=== PATIENT | male | born 1965 | race Caucasian/White ===

== ENCOUNTER → 2020-02-22 17:47 | Outpatient (BNVA) | payer SELFPAY | PROVIDERS: Visit Provider Nurse Practitioner Family | DX: E11.65 Type 2 diabetes mellitus with hyperglycemia (principal); I10 Essential (primary) hypertension; R39.198 Other difficulties with micturition; Z72.0 Tobacco use | CPT/HCPCS: 80053; 80061; 81003; 82043; 83036; 85025 ==

== ENCOUNTER 2020-04-07 07:08 | Outpatient (CLI) | payer SELFPAY ==
--- NOTE | 2020-04-07 07:15 | US_ITS ---
WS: [id number] ULTRASOUND ABDOMEN LIMITED CLINICAL INFORMATION: RUQ pain COMPARISON: None. FINDINGS: Liver Size: Normal. Craniocaudal length: 16.6 cm. Echogenicity: Normal. Surface nodularity: None. Mass (size and location): None. Bile ducts Intrahepatic ducts: Normal. Common bile duct diameter: 0.3 cm. Gallbladder Normal. Gallstones: None. Gallbladder sludge: None. Gallbladder wall thickening: None. Pericholecystic fluid: None. Sonographic Early sign: Absent. Pancreas Normal as visualized. Right kidney: Normal. Hydronephrosis: None. Size: 11.9 cm x 5.6 cm x 5.4 cm. Abdominal aorta and IVC Visualized portions are normal. Ascites: None. US/US abdomen limited 11323 IMPRESSION: Normal abdominal ultrasound
== END 2020-04-07 07:09 | disposition home or self-care (01) ==
LOC: US 07:19
PROVIDERS: PCP Chiropractor Orthopedic; Visit Provider Nurse Practitioner Family
DX: R10.11 Right upper quadrant pain (principal)
CPT/HCPCS: 76705

== ENCOUNTER → 2021-03-04 16:49 | Outpatient (BNVA) | payer SELFPAY | PROVIDERS: PCP Chiropractor Orthopedic; Visit Provider Emergency Medicine | DX: I10 Essential (primary) hypertension (principal); I25.2 Old myocardial infarction; F41.9 Anxiety disorder, unspecified; F32.A Depression, unspecified; R39.198 Other difficulties with micturition; N40.0 Benign prostatic hyperplasia without lower urinary tract symptoms | CPT/HCPCS: G0103 ==